=== PATIENT | female | born 1975 | race Caucasian/White ===

== ENCOUNTER 2017-09-05 15:21 | Emergency (ER) | payer SELFPAY ==
[~2017-09-05] VITALS: Ht 162.6 cm; Wt 59.1 kg
[~2017-09-05 15:21] MED LIST: BACTRIM DS 8001 TAB PO; MONISTAT 72% TOP; NO HOME MEDICATIONS; NORCO 325 MG-51 TAB PO; PROZAC20 MG PO; XANAX 0.5MG0.5 MG PO; XANAX0.25 MG PO
[2017-09-05 15:26] VITALS: BP 196/103; TEMP 99
[2017-09-05 17:36] LABS: COLLECTION METHOD CLEAN CATCH
[2017-09-05 18:00] LABS: PH 7 (5-8); SQUAMOUS EPITHELIAL 0-2 /hpf; URINE APPEARANCE Clear; URINE BACTERIA None Seen /hpf; URINE BILIRUBIN Negative (NEGATIVE); URINE BLOOD 1+ (NEGATIVE); URINE COLOR Straw; URINE GLUCOSE Negative (NEGATIVE); URINE KETONE Negative (NEGATIVE); URINE LEUKOCYTE ESTERASE Negative (NEGATIVE); URINE NITRATE Negative (NEGATIVE); URINE PROTEIN(semi-quant) Negative (NEGATIVE); URINE UROBILINOGEN Negative (NEGATIVE)
[2017-09-05 18:09] LABS: HIV 1/2 Antibodies Non-Reactive; HIV-1p24 Antigen Non-Reactive
[2017-09-05 18:36] VITALS: PULSE 89
== END 2017-09-05 18:36 | disposition home or self-care (01) ==
LOC: COL.ER 15:21
PROVIDERS: Emergency Medicine
DX: N89.8 Other specified noninflammatory disorders of vagina (principal)
CPT/HCPCS: J0696